=== PATIENT | female | born 1970 | race Caucasian/White ===

== ENCOUNTER 2017-10-12 11:20 | Emergency (ER) | payer BC ==
[~2017-10-12] VITALS: Ht 162.6 cm; Wt 86.0 kg
[~2017-10-12 11:20] MED LIST: ADVIL200 M1 PO; AMITRIPTYLINE H10 MG PO; ENDOCET 5-3251 EACH PO; Motrin PO; NAFCIL IV; TOPROL XL50 MG PO; Tylenol Extra Streng PO; ZESTRIL,PRINIVI10 MG PO
[2017-10-12 11:29] VITALS: BP 177/110
[2017-10-12 12:01] LABS: HEMATOCRIT 44.2 % (36.0-46.0); HEMOGLOBIN 14.6 G/DL (11.9-15.5); MCV 93.8 FL (83-99); PLATELET COUNT 294 K/uL (156-360); RBC DIS.WIDTH-CV 12.5 % (11.8-14.6); RBC DIS.WIDTH-SD 43.5 % (39-53); RED BLOOD COUNT 4.71 M/uL (3.80-5.20); WHITE BLOOD COUNT 9.2 K/uL (4.1-10.2)
[2017-10-12 12:12] LABS: CHLORIDE 107 mEq/L (99-109); SODIUM 137 mEq/L (136-147)
[2017-10-12 12:14] LABS: GLUCOSE 104 mg/dL (70-99)
[2017-10-12 12:17] LABS: CREATININE 0.9 mg/dL (0.6-1.3); GFR ESTIMATE (CALCULATED) > 59 mL/min/
[2017-10-12 12:18] LABS: UREA NITROGEN (BUN) 20 mg/dL (9-23)
== END 2017-10-12 15:52 | disposition left against medical advice (07) ==
LOC: EME 11:20
DX: K62.5 Hemorrhage of anus and rectum (principal); R42 Dizziness and giddiness; Z53.21 Procedure and treatment not carried out due to patient leaving prior to being seen by health care provider
CPT/HCPCS: 80048; 85027; 86850; 86900; 86901